=== PATIENT | female | born 1955 | race Caucasian/White ===

== ENCOUNTER → 2024-12-21 16:43 | Outpatient (REF) | payer MEDICARE, OTHER, SELFPAY | LOC: RAD 16:43 | PROVIDERS: ATTENDING PHYSICIAN Nurse Practitioner | DX: M25.562 Pain in left knee (principal) | CPT/HCPCS: 73564 ==

== ENCOUNTER → 2024-12-25 08:02 | Outpatient (REF) | payer MEDICARE, OTHER, SELFPAY | LOC: PAVMRI 08:02 | PROVIDERS: ATTENDING PHYSICIAN Orthopaedic Surgery Sports Medicine; FAMILY PHYSICIAN Family Medicine | DX: M25.562 Pain in left knee (principal) | CPT/HCPCS: 73721 ==